=== PATIENT | male | born 1930 | race Caucasian/White ===

== ENCOUNTER 2019-06-24 12:40 | Inpatient (IN) ==
--- NOTE | 2019-06-24 13:03 | ERNOTE ---
Dizziness ER Record Date of Service: 06/24/19 Presenting Symptoms: dizziness Time Seen by Provider: 06/24/19 13:00 Source: patient Exam Limitations: no limitations Immunizations: IMMUNIZATION HX Immunizations Up to Date Yes History of Influenza Vaccine Yes Hx Pneumococcal Vaccination Yes Allergies/Adverse Reactions: Allergies Allergy/AdvReac Type Severity Reaction Status Date / Time Penicillins Allergy Other Verified 06/24/19 12:47 Home Medications: HOME MEDICATIONS Aspirin [Addis Chewable] 81 mg PO DAILY 08/13/15 [Last Taken Unknown] Finasteride [Proscar] 5 mg PO DAILY 08/13/15 [Last Taken Unknown] Levothyroxine Sodium [Synthroid] 75 mcg PO DAILY 08/13/15 [Last Taken Unknown] Tamsulosin HCl [Flomax] 0.8 mg PO DAILY 08/13/15 [Last Taken Unknown] Vit B Comp/C/FA/Iron/Vit E [Vitamin B Complex Tablet] 1 ea PO DAILY 08/13/15 [Last Taken Unknown] bisacodyl 5 mg tablet,delayed release 5 mg PO HS 03/10/18 [Last Taken Unknown] calcium carbonate 500 mg calcium (1,250 mg) chewable tablet 500 mg PO DAILY tab 03/10/18 [Last Taken Unknown] carvedilol 25 mg tablet 12.5 mg PO BID tab 03/10/18 [Last Taken Unknown] hydralazine 10 mg tablet 20 mg PO TID tab 03/10/18 [Last Taken Unknown] hydrocortisone-pramoxine 1 %-1 % rectal cream 1 applic OR TID PRN g 03/10/18 [Last Taken Unknown] krill 1,000 mg-omega-3 170 mg-dha 50 mg-epa 80 ff-lbakrl-zmgdo capsule 1 cap PO DAILY cap 03/10/18 [Last Taken Unknown] magnesium hydroxide 400 mg/5 mL oral suspension 5 ml PO HS PRN 03/10/18 [Last Taken Unknown] ysnzwava-wdu-qrhvf acid 0.4 mg-lycopene 300 mcg-lutein 250 mcg tablet 1 tab PO DAILY 03/10/18 [Last Taken Unknown] insulin syringe-needle U-100 0.3 mL 29 gauge x 08/27" See Dose Instructions .ROUTE .MEDSUPPLY #100 ea 03/12/18 [Last Taken Unknown] pen needle, diabetic 31 gauge x 01/08" See Dose Instructions .ROUTE .MEDSUPPLY #100 ea 03/19/18 [Last Taken Unknown] lisinopril 10 mg tablet 10 mg PO DAILY tab 09/19/18 [Last Taken Unknown] ranitidine HCl 300 mg tablet 300 mg PO BID 90 Days #180 tab 12/17/18 [Last Taken Unknown] insulin degludec 100 unit/mL (3 mL) subcutaneous pen 10 unit SUBCUT HS #15 ml 01/06/19 [Last Taken Unknown] furosemide 40 mg tablet 40 mg PO DAILY #90 tab 03/25/19 [Last Taken Unknown] glimepiride 4 mg tablet 4 mg PO QAM #90 tab 03/25/19 [Last Taken Unknown] blood sugar diagnostic See Dose Instructions .ROUTE .MEDSUPPLY #200 ea 04/20/19 [Last Taken Unknown] lancets See Dose Instructions .ROUTE .MEDSUPPLY #306 ea 04/20/19 [Last Taken Unknown] amlodipine 10 mg tablet 10 mg PO DAILY #90 tab 05/13/19 [Last Taken Unknown] gabapentin 300 mg capsule 300 mg PO BID #180 cap 06/02/19 [Last Taken Unknown] simvastatin 10 mg tablet 10 mg PO DAILY #90 tab 06/02/19 [Last Taken Unknown] - Pain Score Pain Score #1 Pain Score: 0 - History of Present Illness Narrative: The patient is a 88 year old male who presents for increased fatigue and intermittent dizziness which has been present since last night. There are associated symptoms of cough. The patient denies pain. There are no alleviating factors. There are aggravating factors of activity or change in position. Previous treatments have included: none. The past medical history includes: aortic stenosis, BPH, DM and HTN. The social history is positive for former smoker. The patient has had no ill contacts. Patient states he began feeling fatigue last evening and then today was having dizziness/lightheadedness with position changes and during activity. Patient states hew as so fatigued today that he was unable to get self out of bed. Review of Systems - Review of Systems Constitutional: Present: weakness, fatigue. Absent: fever EYE: Present: no symptoms reported ENT: Present: no symptoms reported. Absent: ear pain, nasal drainage, sore throat Respiratory: Present: cough. Absent: shortness of breath Cardiology: Present: no symptoms reported. Absent: chest pain Gastrointestinal/Abdominal: Present: no symptoms reported. Absent: nausea, vomiting, diarrhea, abdominal pain, eating less, drinking less Genitourinary: Present: no symptoms reported. Absent: frequency, dysuria, decreased urinary output Musculoskeletal: Present: no symptoms reported Skin: Present: no symptoms reported. Absent: rash Neurological: Present: dizziness/light-headedness. Absent: weakness All Other Systems: All systems neg except as marked Medical History (Last Reviewed 06/24/19 @ 15:01 by ADDI Wise) Hypercholesterolemia (Chronic) Essential hypertension (Chronic) Diabetes mellitus, type II (Chronic) Aortic stenosis (Chronic) moderate Benign prostate hyperplasia Myasthenia gravis without (acute) exacerbation Surgical History: Surgical History (Last Reviewed 06/24/19 @ 15:01 by ADDI Wise) H/O hernia repair History of cataract surgery History of left knee replacement Family History: Family History (Last Reviewed 06/24/19 @ 15:01 by ADDI Wise) Father , Age 76 CVA (cerebral vascular accident) Mother , Age 88 Diabetes Social History: (Last Reviewed 06/24/19 @ 15:01 by ADDI Wise) Social History: Marital status: household members: spouse current occupational status: retired Service: Yes Tobacco: Smoking Status: Former smoker Alcohol: alcohol intake: never Substance Use: substance use type: does not use Dietary Habits: caffeine: Yes Physical Exam - Physical Exam General Appearance: Present: wd/wn, alert, mild distress, other - malaised Head Exam: Present: normal inspection Eye Exam: Normal inspection: bilateral, PERRL: bilateral, EOMI: bilateral Neck: Present: normal inspection, nontender Respiratory: Present: no respiratory distress, decreased breath sounds, wheezing - expiratory wheezing Cardiovascular/Chest: Present: regular rate, rhythm, systolic murmur Gastrointestinal/Abdominal: Present: normal bowel sounds, nontender, nondistended, soft, no organomegaly Extremity Exam: Present: no edema Neurological Exam: Present: alert, oriented, normal mood/affect, no motor/sensory deficits, brim edge trimmer II-XII nml as tested, normal cerebellar test Skin Exam: Present: normal color, warm/dry Progress - Date and Time Seen: Date and Time: 06/24/19 15:15 Discussed results with patient as well as plan of care. Recommended hospital admission due to acute on chronic renal failure along with pneumonia. [facility] is [facility] and [facility] to go [facility]. Will fax chart for possible transfer. 06/24/19 15:55 Return call from [facility] and informed from Pina RIZVI that patient admission would be covered by [facility] but transport would not be covered. Admission local would not be covered by [facility] coverage. P[facility] discussed options with patient to be transferred to [facility] without transport coverage vs local admission with billing through secondary insurance, patient requests to stay local. 06/24/19 16:10 Discussed case with , will admit for inpatient for pneumonia and acute on chronic renal failure. Patient PSI score, IV. - Results and Orders Patient's Lab Results:: I have reviewed the patient's lab results. - Vital Signs Patient's Vital Signs:: I have reviewed the patient's vital signs. Vital Signs: Vital Signs 06/24/19 12:44 Temperature 36.4 C Pulse Rate 70 Respiratory Rate 16 Blood Pressure 115/53 O2 Sat by Pulse Oximetry 96 - EKG EKG #1 EKG: NSR - 1st degree AV block EKG read: Reviewed by me - X-Ray X-Ray #1 X-Ray: chest Interpretation: Reviewed by me X-ray Comments: IMPRESSION: 1. NO PRIOR STUDIES FOR COMPARISON. 2. MILD HYPERINFLATION. 3. QUESTIONABLE SUBTLE INFILTRATE IN THE INFERIOR MEDIAL RIGHT LOWER LOBE. Electronically signed by Duke Jenkins M.D.. - CT/Ultrasound CT/Ultrasound Narrative: IMPRESSION: 1. NO ACUTE INTRACRANIAL PROCESS. 2. TOTAL OPACIFICATION OF THE RIGHT MAXILLARY SINUS WITH SOME THICKENING OF THE BONE SUGGESTING CHRONIC SINUSITIS. ENT FOLLOW-UP RECOMMENDED. Electronically signed by Duke Jenkins M.D.. - Progress/Reassessment Chief Complaint: Dizziness Progress:: Improved Departure Clinical Impression: Pneumonia Qualifiers: Pneumonia type: due to unspecified organism Laterality: right Lung location: lower lobe of lung Qualified Code(s): J18.1 - Lobar pneumonia, unspecified organism Acute on chronic renal failure Qualifiers: Acute renal failure type: unspecified Chronic kidney disease stage: unspecified stage Qualified Code(s): N17.9 - Acute kidney failure, unspecified - Departure Disposition: Still a patient Condition: Stable
[2019-06-24 13:36] LABS: Hematocrit 32.3 % (42.0-52.0); Hemoglobin 10.9 gm/dL (13.5-18.0); Mean Cell Volume 95.3 fl (78-100); Mean Corpuscular Hemoglobin 32.2 pg (27-31); Mean Corpuscular Hgb Conc 33.7 g/dl (32-36); Mean Platelet Volume 11.6 fl (8-11.3); Neutrophil # 15.8 K/mm3 (1.3-6.0); Neutrophil % 87.2 % (42-75.0); Platelet Count 148 K/mm3 (150-450); Red Blood Count 3.39 M/mm3 (4.7-6.0); Red Cell Distribution Width 12.5 % (11.5-14.0); White Blood Count 18.1 K/mm3 (4.0-10.5)
[2019-06-24 13:50] LABS: ALT 36 U/L (19-67); AST 31 U/L (0-48); Albumin * 3.1 gm/dl (3.4-5.0); Alkaline Phosphatase * 88 U/L (50-170); Anion Gap 11.9 mmol/L (6.8-13.8); BUN/Creatinine Ratio 19.1 (9.0-21.6); Bilirubin, Total 0.4 mg/dL (0.0-1.1); Blood Urea Nitrogen 59 mg/dL (6-23); Ca. Corrected For Albumin 8.1 mg/dL (8.4-10.2); Calcium * 7.7 mg/dL (7.9-10.9); Carbon Dioxide 25.3 mmol/L (24-32.6); Chloride 99 mmol/L (97-106); Glucose * 251 mg/dL (70-110); Potassium 4.2 mmol/L (3.4-4.6); Sodium 132 mmol/L (132-142)
[2019-06-24 13:56] LABS: Troponin I Less than 0.017 ng/mL (0.00-0.10)
[2019-06-24] MEDS ORDERED: NORMAL SALINE 1,000 ML IV PRN (14:57)
[2019-06-24] MEDS ORDERED: cefTRIAXone SODIUM 1,000 MG/100 ML BAG IV ONE (15:17)
[2019-06-24] MEDS ORDERED: ALBUTEROL SULFATE/IPRATROPIUM 3 ML NEBU IH ONE (15:18)
[2019-06-24 15:27] LABS: Urine Appearance Clear (CLEAR); Urine Bacteria None Seen; Urine Bilirubin Negative (NEGATIVE); Urine Blood Negative /ul (NEGATIVE); Urine Color Yellow; Urine Ketone Negative (NEGATIVE); Urine Nitrite Negative (NEGATIVE); Urine Protein Negative (NEGATIVE); Urine RBC None Seen /hpf (0-5); Urine Urobilinogen Normal (NORMAL); Urine WBC None Seen /hpf (0-5); Urine pH 5.5 pH (5.0-7.0)
[2019-06-24] MEDS ORDERED: AZITHROMYCIN 250 MG TABLET PO ONE (16:01)
[2019-06-24] MEDS ORDERED: guaiFENesin 100 MG/5 ML SYRUP PO PRN (19:02)
[2019-06-24] MEDS ORDERED: MAGNESIUM HYDROXIDE 30 ML UDC PO PRN (19:06)
--- NOTE | 2019-06-24 19:31 | HP ---
Chief Complaint - Chief Complaint Date of Service: 06/24/19 Time of Service: 19:19 Chief Complaint: I had cough, weakness, and chills since this morning History of Present Illness: 88-year-old male with past medical history of type 2 diabetes, chronic kidney disease, hypertension, BPH, aortic stenosis, hypercholesterolemia, former smoker, was evaluated in our ER for worsening weakness and persistent cough as well as a headache that started this morning. Patient reports he went to bed okay last night and has not been ill in the past few days but when he woke up this morning and attempted to get out of bed he was unable to due to generalized weakness patient reports he felt ill with chills and a persistent cough. He reports receiving the influenza vaccination several weeks ago and denies any adverse reactions after the injection. Patient reports any recent travel or sick contacts. He currently lives with his who tells me that the patient had been fine over the past several days but felt ill this morning per her knowledge. Patient denies losing consciousness at any moment or falling but says he just feels weak. He reports adequate oral intake of fluids and food and denies any diarrhea that could explain fluid loss. Medical History (Last Reviewed 06/24/19 @ 15:01 by ADDI Wise) Hypercholesterolemia (Chronic) Essential hypertension (Chronic) Diabetes mellitus, type II (Chronic) Aortic stenosis (Chronic) moderate Benign prostate hyperplasia Myasthenia gravis without (acute) exacerbation Surgical History: Surgical History (Last Reviewed 06/24/19 @ 15:01 by ADDI Wise) H/O hernia repair History of cataract surgery History of left knee replacement Family History: Family History (Last Reviewed 06/24/19 @ 15:01 by ADDI Wise) Father , Age 76 CVA (cerebral vascular accident) Mother , Age 88 Diabetes Social History: (Last Reviewed 06/24/19 @ 15:01 by ADDI Wise) Social History: Marital status: household members: spouse current occupational status: retired Service: Yes Tobacco: Smoking Status: Former smoker Alcohol: alcohol intake: never Substance Use: substance use type: does not use Dietary Habits: caffeine: Yes Peds Patient Hx - Developmental: No Pertinent Hx Peds Patient Hx - Medical: No Pertinent Hx Peds Patient Hx - Cardiac/Respiratory: No Pertinent Hx Peds Patient Hx - Surgical: No Surgical History Patient History - Cancer: No Hx of Cancer Review Of Systems (GEN) - Review of Systems Generalized/Overall Review: Present: Weakness, Chills, Malaise, Fatigue EENTM: Present: No Symptoms Reported Respiratory: Present: Cough Cardiac: Present: No Symptoms Reported Abdominal: Present: No Symptoms Reported Genitourinary: Present: No Symptoms Reported Musculoskeletal: Present: No Symptoms Reported Neurological: Present: Headache Skin: Present: No Symptoms Reported Endocrine: Present: No Symptoms Reported Immunizations: IMMUNIZATION HX Immunizations Up to Date Yes History of Influenza Vaccine Yes Hx Pneumococcal Vaccination Yes Allergies/Adverse Reactions: Allergies Allergy/AdvReac Type Severity Reaction Status Date / Time Penicillins Allergy Other Verified 06/24/19 12:47 Home Medications: HOME MEDICATIONS Aspirin [Addis Chewable] 81 mg PO DAILY 08/13/15 [Last Taken Unknown] Finasteride [Proscar] 5 mg PO DAILY 08/13/15 [Last Taken Unknown] Levothyroxine Sodium [Synthroid] 75 mcg PO DAILY 08/13/15 [Last Taken Unknown] Tamsulosin HCl [Flomax] 0.8 mg PO DAILY 08/13/15 [Last Taken Unknown] Vit B Comp/C/FA/Iron/Vit E [Vitamin B Complex Tablet] 1 ea PO DAILY 08/13/15 [Last Taken Unknown] bisacodyl 5 mg tablet,delayed release 5 mg PO HS 03/10/18 [Last Taken Unknown] calcium carbonate 500 mg calcium (1,250 mg) chewable tablet 500 mg PO DAILY tab 03/10/18 [Last Taken Unknown] carvedilol 25 mg tablet 12.5 mg PO BID tab 03/10/18 [Last Taken Unknown] hydralazine 10 mg tablet 20 mg PO TID tab 03/10/18 [Last Taken Unknown] hydrocortisone-pramoxine 1 %-1 % rectal cream 1 applic OR TID PRN g 03/10/18 [Last Taken Unknown] krill 1,000 mg-omega-3 170 mg-dha 50 mg-epa 80 vs-arbmuu-fulae capsule 1 cap PO DAILY cap 03/10/18 [Last Taken Unknown] magnesium hydroxide 400 mg/5 mL oral suspension 5 ml PO HS PRN 03/10/18 [Last Taken Unknown] ofzlnlaw-vuz-lloac acid 0.4 mg-lycopene 300 mcg-lutein 250 mcg tablet 1 tab PO DAILY 03/10/18 [Last Taken Unknown] insulin syringe-needle U-100 0.3 mL 29 gauge x 1/2" See Dose Instructions .ROUTE .MEDSUPPLY #100 ea 03/12/18 [Last Taken Unknown] pen needle, diabetic 31 gauge x 01/08" See Dose Instructions .ROUTE .MEDSUPPLY #100 ea 03/19/18 [Last Taken Unknown] lisinopril 10 mg tablet 10 mg PO DAILY tab 09/19/18 [Last Taken Unknown] ranitidine HCl 300 mg tablet 300 mg PO BID 90 Days #180 tab 12/17/18 [Last Taken Unknown] insulin degludec 100 unit/mL (3 mL) subcutaneous pen 10 unit SUBCUT HS #15 ml 01/06/19 [Last Taken Unknown] furosemide 40 mg tablet 40 mg PO DAILY #90 tab 03/25/19 [Last Taken Unknown] glimepiride 4 mg tablet 4 mg PO QAM #90 tab 03/25/19 [Last Taken Unknown] blood sugar diagnostic See Dose Instructions .ROUTE .MEDSUPPLY #200 ea 04/20/19 [Last Taken Unknown] lancets See Dose Instructions .ROUTE .MEDSUPPLY #306 ea 04/20/19 [Last Taken Unknown] amlodipine 10 mg tablet 10 mg PO DAILY #90 tab 05/13/19 [Last Taken Unknown] gabapentin 300 mg capsule 300 mg PO BID #180 cap 06/02/19 [Last Taken Unknown] simvastatin 10 mg tablet 10 mg PO DAILY #90 tab 06/02/19 [Last Taken Unknown] Exam - Exam Vital Signs: Vital Signs - Last Taken Temp 36.4 C 06/24/19 12:44 Pulse 56 L 06/24/19 17:30 Resp 14 06/24/19 17:20 BP 111/37 06/24/19 17:20 Pulse Ox 94 06/24/19 17:20 Constitutional: Present: Alert, Oriented x3, Cooperative, Well developed, Well nourished, No distress, Elderly ENT Exam: Present: normal ENT inspection, hearing grossly normal, pharynx normal, TMs normal Eye Exam: bilateral eye: normal inspection, PERRL, EOMI Neck: Present: non-tender, full range of motion, supple, normal inspection, trachea midline Back Exam: Present: normal inspection, no CVA tenderness, no vertebral tenderness Breasts: Present: Exam deferred Respiratory: Present: decreased breath sounds Cardiovascular/Chest: Present: normal peripheral pulses, regular rate, rhythm, no chest tenderness, no edema, no gallop, no JVD, no murmur, no rub, systolic murmur Peripheral Pulses: carotid (R): 4+, carotid (L): 4+, femoral (R): 4+, femoral (L): 4+, dorsalis-pedis (R): 4+, dorsalis-pedis (L): 4+ Abdomen: Present: Normal bowel sounds, soft, nontender, nondistended, no rebound tenderness, no hepatospenomegaly, no masses, obese /Rectal: Present: Exam deferred Extremity: Present: normal range of motion, non-tender, normal inspection, no pedal edema, no calf tenderness, normal capillary refill, pelvis stable Skin Exam: Present: normal color, warm/dry, no cyanosis Lymphatic: Present: no adenopathy Neurologic: Present: paper bag maker II-XII nml as tested, normal cerebellar test, no motor/sensory deficits, alert, normal mood/affect, oriented x 3 Appearance: Present: appropriate appearance, appropriate insight, neat, no memory impairment Eye contact: Present: cooperative, good eye contact, normal speech Thoughts: Present: normal thought pattern, no apparent hallucination Diagnostic Studies: Abnormal Lab Results 06/24/19 06/24/19 Range/Units 13:20 13:20 WBC 18.1 H (4.0-10.5) K/mm3 RBC 3.39 L (4.7-6.0) M/mm3 Hgb 10.9 L (13.5-18.0) gm/dL Hct 32.3 L (42.0-52.0) % MCH 32.2 H (27-31) pg Plt Count 148 L (150-450) K/mm3 MPV 11.6 H (8-11.3) fl Immature Gran % (Auto) 0.90 H (0.001-0.429) % Immature Gran # (Auto) 0.16 H (0.000-0.0310) K/mm3 Neutrophils % 87.2 H (42-75.0) % Lymphocytes % 6.1 L (20-51) % Neutrophils # 15.8 H (1.3-6.0) K/mm3 Lymphocytes # 1.11 L (1.5-3.5) k/mm3 BUN 59 H (6-23) mg/dL Creatinine 3.09 H D (0.4-1.4) mg/dL Est GFR (Non-Af Amer) 20 L D (60-130) mL/min Random Glucose 251 H (70-110) mg/dL Calcium 7.7 L (7.9-10.9) mg/dL Calcium Adj for Albumin 8.1 L (8.4-10.2) mg/dL Albumin 3.1 L (3.4-5.0) gm/dl Laboratory Results WBC 18.1 K/mm3 (4.0-10.5) H 06/24/19 13:20 RBC 3.39 M/mm3 (4.7-6.0) L 06/24/19 13:20 Hgb 10.9 gm/dL (13.5-18.0) L 06/24/19 13:20 Hct 32.3 % (42.0-52.0) L 06/24/19 13:20 MCV 95.3 fl (78-100) 06/24/19 13:20 MCH 32.2 pg (27-31) H 06/24/19 13:20 MCHC 33.7 g/dl (32-36) 06/24/19 13:20 RDW 12.5 % (11.5-14.0) 06/24/19 13:20 Plt Count 148 K/mm3 (150-450) L 06/24/19 13:20 MPV 11.6 fl (8-11.3) H 06/24/19 13:20 Immature Gran % (Auto) 0.90 % (0.001-0.429) H 06/24/19 13:20 Immature Gran # (Auto) 0.16 K/mm3 (0.000-0.0310) H 06/24/19 13:20 Neutrophils % 87.2 % (42-75.0) H 06/24/19 13:20 Lymphocytes % 6.1 % (20-51) L 06/24/19 13:20 Monocytes % 5.5 % (0.0-9) 06/24/19 13:20 Eosinophils % 0.1 % (0.0-3.0) 06/24/19 13:20 Basophils % 0.2 % (0.0-1.0) 06/24/19 13:20 Nucleated RBC % 0.0 k/mm3 (0-1) 06/24/19 13:20 Neutrophils # 15.8 K/mm3 (1.3-6.0) H 06/24/19 13:20 Lymphocytes # 1.11 k/mm3 (1.5-3.5) L 06/24/19 13:20 Monocytes # 1.0 k/mm3 (0.0-1.0) 06/24/19 13:20 Eosinophils # 0.0 k/mm3 (0.0-0.7) 06/24/19 13:20 Absolute Basophils 0.0 k/mm3 (0.0-0.1) 06/24/19 13:20 Sodium 132 mmol/L (132-142) 06/24/19 13:20 Plasma Sodium 134 mmol/L (130-142) 06/24/19 13:20 Potassium 4.2 mmol/L (3.4-4.6) 06/24/19 13:20 Chloride 99 mmol/L (97-106) 06/24/19 13:20 Carbon Dioxide 25.3 mmol/L (24-32.6) 06/24/19 13:20 Anion Gap 11.9 mmol/L (6.8-13.8) 06/24/19 13:20 BUN 59 mg/dL (6-23) H 06/24/19 13:20 Creatinine 3.09 mg/dL (0.4-1.4) H D 06/24/19 13:20 Est GFR (Non-Af Amer) 20 mL/min (60-130) L D 06/24/19 13:20 BUN/Creatinine Ratio 19.1 (9.0-21.6) 06/24/19 13:20 Random Glucose 251 mg/dL (70-110) H 06/24/19 13:20 Lactic Acid, Venous 1.6 mmol/L (0.4-2.0) 06/24/19 13:20 Calcium 7.7 mg/dL (7.9-10.9) L 06/24/19 13:20 Calcium Adj for Albumin 8.1 mg/dL (8.4-10.2) L 06/24/19 13:20 Total Bilirubin 0.4 mg/dL (0.0-1.1) 06/24/19 13:20 AST 31 U/L (0-48) 06/24/19 13:20 ALT 36 U/L (19-67) 06/24/19 13:20 Alkaline Phosphatase 88 U/L (50-170) 06/24/19 13:20 Troponin I Less than 0.017 ng/mL (0.00-0.10) 06/24/19 13:20 Total Protein 7.0 gm/dL (6.2-8.2) 06/24/19 13:20 Albumin 3.1 gm/dl (3.4-5.0) L 06/24/19 13:20 Urine Color Yellow 06/24/19 15:24 Urine Appearance Clear (CLEAR) 06/24/19 15:24 Urine pH 5.5 pH (5.0-7.0) 06/24/19 15:24 Ur Specific [place] 1.010 SP.GR. (1.005-1.030) 06/24/19 15:24 Urine Protein Negative mg/dL (NEGATIVE) 06/24/19 15:24 Urine Glucose (UA) Negative mg/dL (NEGATIVE) 06/24/19 15:24 Urine Ketones Negative mg/dL (NEGATIVE) 06/24/19 15:24 Urine Blood Negative /ul (NEGATIVE) 06/24/19 15:24 Urine Nitrate Negative (NEGATIVE) 06/24/19 15:24 Urine Bilirubin Negative mg/dl (NEGATIVE) 06/24/19 15:24 Urine Urobilinogen Normal EU/dl (NORMAL) 06/24/19 15:24 Ur Leukocyte Esterase Negative /ul (NEGATIVE) 06/24/19 15:24 Urine RBC None seen /hpf (0-5) 06/24/19 15:24 Urine WBC None seen /hpf (0-5) 06/24/19 15:24 Ur Epithelial Cells None seen /hpf (0-5) 06/24/19 15:24 Urine Bacteria None seen (NONE) 06/24/19 15:24 Urine Culture Comments No culture indicated 06/24/19 15:24 Assessment/Plan - Narrative Narrative: Patient was evaluated and medical chart was reviewed and decision to admit to our inpatient MedSurg unit for treatment of a right-sided lobar pneumonia, acute on chronic renal failure and moderate dehydration was made. Labs on admission demonstrate an elevated creatinine and BUN above the patient's baseline indicating an acute renal insufficiency superimposed on his chronic kidney disease, this is likely secondary to dehydration given the patient's acute illness. We will hydrate him with IV fluids and cover him with IV antibiotics for bronchopneumonia confirmed with a chest x-ray and leukocytosis on CBC. At present the patient is resting comfortably he is surrounded by his family and is lucid awake and alert, he denies any pain and is not currently coughing and maintains stable vitals. I will order follow-up labs to be repeated in the morning to reevaluate his white count as well as renal function. All routine medications were reconciled for administration during the hospitalization. - Assessment/Plan (1) Lobar pneumonia, unspecified organism Problem: Acute (2) Mild dehydration Problem: Acute (3) Moderate dehydration Problem: Acute (4) Acute kidney injury superimposed on CKD Problem: Acute (5) Generalized weakness Problem: Acute (6) Diabetes 1.5, managed as type 2 Problem: Chronic
[2019-06-24] MEDS: NORMAL SALINE 1,000 ML IV PRN (19:34)
[2019-06-24] MEDS ORDERED: RANITIDINE HCL 300 MG PO SCH (21:00)
[2019-06-24] MEDS ORDERED: Insulin Degludec [Tresiba Flextouch U-100] SC SCH ×2 (21:00)
[2019-06-24] MEDS ORDERED: CARVEDILOL 25 MG TABLET PO SCH (21:00)
[2019-06-24] MEDS ORDERED: INSULIN GLARGINE,HUM.REC.ANLOG 100 UNITS/ML VIAL SC SCH (21:00)
[2019-06-24] MEDS ORDERED: INSULIN DEGLUDEC subcut SCH (21:00)
[2019-06-24] MEDS: BISACODYL 5 MG TABLET.DR PO SCH (21:05)
[2019-06-24] MEDS: GABAPENTIN 300 MG CAPSULE PO SCH (21:06)
[2019-06-24] MEDS: INSULIN DETEMIR 100 UNITS/ML VIAL SC SCH (21:45)
[2019-06-25] MEDS: NORMAL SALINE 1,000 ML IV PRN ×3 (03:34→19:59)
[2019-06-25 05:31] LABS: Hematocrit 26.3 % (42.0-52.0); Hemoglobin 8.7 gm/dL (13.5-18.0); Mean Cell Volume 94.6 fl (78-100); Mean Corpuscular Hemoglobin 31.3 pg (27-31); Mean Corpuscular Hgb Conc 33.1 g/dl (32-36); Mean Platelet Volume 11.5 fl (8-11.3); Neutrophil # 9.9 K/mm3 (1.3-6.0); Neutrophil % 79.2 % (42-75.0); Platelet Count 107 K/mm3 (150-450); Red Blood Count 2.78 M/mm3 (4.7-6.0); Red Cell Distribution Width 12.4 % (11.5-14.0); White Blood Count 12.5 K/mm3 (4.0-10.5)
[2019-06-25 05:48] LABS: Albumin * 2.5 gm/dl (3.4-5.0); Anion Gap 11.6 mmol/L (6.8-13.8); BUN/Creatinine Ratio 21.9 (9.0-21.6); Bilirubin, Total 0.4 mg/dL (0.0-1.1); Ca. Corrected For Albumin 8.2 mg/dL (8.4-10.2); Calcium * 7.3 mg/dL (7.9-10.9); Carbon Dioxide 23.2 mmol/L (24-32.6); Potassium 3.8 mmol/L (3.4-4.6); Total Protein 5.8 gm/dL (6.2-8.2)
[2019-06-25] MEDS ORDERED: guaiFENesin 100 MG/5 ML SYRUP PO PRN (07:38)
[2019-06-25] MEDS: GLIMEPIRIDE 4 MG TABLET PO SCH (08:39)
[2019-06-25] MEDS: ASPIRIN 81 MG TAB.CHEW PO SCH (08:48)
[2019-06-25] MEDS: VITAMIN B COMP W-C 1 TAB TABLET PO SCH (08:48)
[2019-06-25] MEDS: AZITHROMYCIN 250 MG TABLET PO SCH (08:49)
[2019-06-25] MEDS: CARVEDILOL 12.5 MG TABLET PO SCH ×2 (08:49→20:11)
[2019-06-25] MEDS: FAMOTIDINE 20 MG TABLET PO SCH (08:50)
[2019-06-25] MEDS: FINASTERIDE 5 MG TABLET PO SCH (08:50)
[2019-06-25] MEDS: MULTIVIT-MIN/FA/LYCOPEN/LUTEIN 1 TAB TABLET PO SCH (08:51)
[2019-06-25] MEDS: amLODIPine BESYLATE 10 MG TABLET PO SCH (08:51)
[2019-06-25] MEDS: CALCIUM CARBONATE/VITAMIN D3 1 TAB TABLET PO SCH (08:51)
[2019-06-25] MEDS: LISINOPRIL 10 MG TABLET PO SCH (08:51)
[2019-06-25] MEDS: LEVOTHYROXINE SODIUM 75 MCG TABLET PO SCH (08:51)
[2019-06-25] MEDS: GABAPENTIN 300 MG CAPSULE PO SCH ×2 (08:52→20:12)
[2019-06-25] MEDS: TAMSULOSIN HCL 0.4 MG CAP.SR.24H PO SCH (08:52)
[2019-06-25] MEDS: FUROSEMIDE 40 MG TABLET PO SCH (08:52)
[2019-06-25] MEDS ORDERED: NON-FORMULARY 1 DOSE DOSE (Calcium Carbonate [Calcium] 500 MG) PO SCH (09:00)
[2019-06-25] MEDS ORDERED: hydrALAZINE HCL 10 MG TABLET PO SCH (09:00)
[2019-06-25] MEDS ORDERED: FOLIC ACID PO SCH (09:00)
[2019-06-25] MEDS ORDERED: VIT B COMP PO SCH (09:00)
[2019-06-25] MEDS ORDERED: [UNRECOGNIZED DRUG - OTHER] PO SCH (09:00)
[2019-06-25] MEDS ORDERED: SIMVASTATIN 10 MG TABLET PO SCH (09:00)
[2019-06-25] MEDS ORDERED: FAMOTIDINE 20 MG TABLET PO SCH (09:00)
[2019-06-25] MEDS ORDERED: IRON PO SCH (09:00)
[2019-06-25] MEDS ORDERED: VIT E PO SCH (09:00)
[2019-06-25] MEDS ORDERED: MULTIVITAMIN PO SCH (09:00)
[2019-06-25] MEDS ORDERED: LUTEIN PO SCH (09:00)
[2019-06-25] MEDS ORDERED: LYCOPENE PO SCH (09:00)
[2019-06-25] MEDS ORDERED: [UNRECOGNIZED DRUG - OTHER] PO SCH (09:00)
--- NOTE | 2019-06-25 09:15 | PN ---
Subjective - Date and Time Seen Date: 06/25/19 Time: 09:04 Subjective Narrative: patient still complaining of weakness. White blood cell count is gone down from 18.2 to. 12.7.. Objective - Review of Systems Generalized/Overall Review: Reports: Weakness. Denies: Chills, Fever EENTM: Denies: Blurred Vision Respiratory: Reports: Cough, Shortness of Breath. Denies: Orthopnea, Wheezing Cardiac: Denies: Chest Pain, Edema, Palpitations Abdominal: Denies: Nausea, Vomiting Genitourinary Symptoms: Denies: Urgency, Frequency Musculoskeletal Complaints: Reports: Joint Pain. Denies: Back Pain Skin: Denies: Lesions, Rash Endocrine: Denies: Intolerance to Cold, Intolerance to Heat Misc: All systems neg except as marked - Vitals Vitals: Last Vital Signs Temp 37.3 C 06/25/19 07:46 Pulse 63 06/25/19 08:52 Resp 18 06/25/19 07:46 BP 122/45 06/25/19 08:52 Pulse Ox 92 L 06/25/19 07:46 - Abnormal Lab Findings Abnormal Lab Findings: Abnormal Lab Results 06/24/19 06/24/19 06/25/19 Range/Units 13:20 13:20 05:25 WBC 18.1 H 12.5 H D (4.0-10.5) K/mm3 RBC 3.39 L 2.78 L (4.7-6.0) M/mm3 Hgb 10.9 L 8.7 L (13.5-18.0) gm/dL Hct 32.3 L 26.3 L (42.0-52.0) % MCH 32.2 H 31.3 H (27-31) pg Plt Count 148 L 107 L (150-450) K/mm3 MPV 11.6 H 11.5 H (8-11.3) fl Immature Gran % (Auto) 0.90 H (0.001-0.429) % Immature Gran # (Auto) 0.16 H 0.05 H (0.000-0.0310) K/mm3 Neutrophils % 87.2 H 79.2 H (42-75.0) % Lymphocytes % 6.1 L 11.8 L (20-51) % Neutrophils # 15.8 H 9.9 H (1.3-6.0) K/mm3 Lymphocytes # 1.11 L 1.48 L (1.5-3.5) k/mm3 Carbon Dioxide (24-32.6) mmol/L BUN 59 H (6-23) mg/dL Creatinine 3.09 H D (0.4-1.4) mg/dL Est GFR (Non-Af Amer) 20 L D (60-130) mL/min BUN/Creatinine Ratio (9.0-21.6) Random Glucose 251 H (70-110) mg/dL Calcium 7.7 L (7.9-10.9) mg/dL Calcium Adj for Albumin 8.1 L (8.4-10.2) mg/dL Total Protein (6.2-8.2) gm/dL Albumin 3.1 L (3.4-5.0) gm/dl 06/25/19 06/25/19 Range/Units 05:25 07:32 WBC (4.0-10.5) K/mm3 RBC (4.7-6.0) M/mm3 Hgb (13.5-18.0) gm/dL Hct (42.0-52.0) % MCH (27-31) pg Plt Count (150-450) K/mm3 MPV (8-11.3) fl Immature Gran % (Auto) (0.001-0.429) % Immature Gran # (Auto) (0.000-0.0310) K/mm3 Neutrophils % (42-75.0) % Lymphocytes % (20-51) % Neutrophils # (1.3-6.0) K/mm3 Lymphocytes # (1.5-3.5) k/mm3 Carbon Dioxide 23.2 L (24-32.6) mmol/L BUN 53 H (6-23) mg/dL Creatinine 2.42 H D (0.4-1.4) mg/dL Est GFR (Non-Af Amer) 27 L D (60-130) mL/min BUN/Creatinine Ratio 21.9 H (9.0-21.6) Random Glucose 61 L D 48 L (70-110) mg/dL Calcium 7.3 L (7.9-10.9) mg/dL Calcium Adj for Albumin 8.2 L (8.4-10.2) mg/dL Total Protein 5.8 L (6.2-8.2) gm/dL Albumin 2.5 L (3.4-5.0) gm/dl - Exam Constitutional: Present: Alert, Oriented x3, Cooperative, Elderly ENT Exam: Present: hearing grossly normal Neck: Present: supple. Absent: lymphadenopathy (R), lymphadenopathy (L) Respiratory: Present: decreased breath sounds, No rales, No wheezing Cardiovascular/Chest: Present: regular rate, rhythm, no JVD, no murmur Abdomen: Present: Normal bowel sounds, soft, nontender, nondistended Extremity: Present: no pedal edema, no calf tenderness Assessment/Plan Plan Narrative: Tonny Monteiro is an 88-year-old white male who was admitted yesterday for weakness and was found to have an acute kidney failure on chronic renal failure, right lower lobe pneumonia. His kidney failure likely is due to dehydration and his pneumonia is likely either community-acquired versus possible aspiration pneumonia. Since his white blood cell count is improving with ceftriaxone and azithromycin we will continue with it for now and will defer from adding anaerobic coverage for now. We will continue with IV fluid. His creatinine has improved from 3.09 to 2.47 but with his present GFR is in chronic renal failure stage IV. Hopefully his creatinine will continue to improve and he will be able to go back to stage III. He was on chronic renal failure stage III prior to this acute event. We will monitor his hemoglobin at his went down to 8.7. - Problems/Diagnosis (1) Generalized weakness Problem: Acute (2) Pneumonia Problem: Acute Qualifiers: Pneumonia type: due to unspecified organism Laterality: right Lung location: lower lobe of lung Qualified Code(s): J18.1 - Lobar pneumonia, unspecified organism (3) Acute on chronic renal failure Problem: Acute Qualifiers: Acute renal failure type: unspecified Chronic kidney disease stage: unspecified stage Qualified Code(s): N17.9 - Acute kidney failure, unspecified; N18.9 - Chronic kidney disease, unspecified (4) Aortic stenosis Problem: Chronic Qualifiers: Cardiac valve disease etiology: nonrheumatic Qualified Code(s): I35.0 - Nonrheumatic aortic (valve) stenosis (5) Diabetes mellitus, type II Problem: Chronic Qualifiers: Diabetes mellitus mcfp insulin use: without terminal superintendent use Diabetes mellitus complication status: with kidney complications Diabetes mellitus complication detail: with chronic kidney disease Chronic kidney disease stage: stage 3 (moderate) Qualified Code(s): E11.22 - Type 2 diabetes mellitus with diabetic chronic kidney disease; N18.3 - Chronic kidney disease, stage 3 (moderate) (6) Essential hypertension Problem: Chronic (7) Hypercholesterolemia Problem: Chronic (8) CRF (chronic renal failure) Problem: Chronic Qualifiers: Chronic kidney disease stage: stage 3 (moderate) Qualified Code(s): N18.3 - Chronic kidney disease, stage 3 (moderate)
[2019-06-25] MEDS: ACETAMINOPHEN 500 MG TABLET PO PRN (18:40)
[2019-06-25] MEDS: BISACODYL 5 MG TABLET.DR PO SCH (20:01)
[2019-06-25] MEDS: SIMVASTATIN 10 MG TABLET PO SCH (20:13)
[2019-06-25] MEDS: INSULIN DETEMIR 100 UNITS/ML VIAL SC SCH (20:13)
[2019-06-26] MEDS: NORMAL SALINE 1,000 ML IV PRN (03:56)
[2019-06-26] MEDS: GLIMEPIRIDE 4 MG TABLET PO SCH (06:58)
[2019-06-26] MEDS: LEVOTHYROXINE SODIUM 75 MCG TABLET PO SCH (06:58)
[2019-06-26 07:05] LABS: Hematocrit 29.2 % (42.0-52.0); Hemoglobin 9.4 gm/dL (13.5-18.0); Mean Corpuscular Hemoglobin 31.2 pg (27-31); Mean Corpuscular Hgb Conc 32.2 g/dl (32-36); Mean Platelet Volume 11.8 fl (8-11.3); Neutrophil # 7.1 K/mm3 (1.3-6.0); Neutrophil % 73.9 % (42-75.0); Platelet Count 113 K/mm3 (150-450); Red Blood Count 3.01 M/mm3 (4.7-6.0); Red Cell Distribution Width 12.6 % (11.5-14.0); White Blood Count 9.7 K/mm3 (4.0-10.5)
[2019-06-26 07:16] LABS: Anion Gap 11.4 mmol/L (6.8-13.8); Calcium * 7.6 mg/dL (7.9-10.9); Carbon Dioxide 23.5 mmol/L (24-32.6); Estimated Creat Clear 23.3; Potassium 3.9 mmol/L (3.4-4.6)
[2019-06-26 07:38] LABS: Hemoglobin A1C 6.6 % (4.00-6.0)
[2019-06-26] MEDS: VITAMIN B COMP W-C 1 TAB TABLET PO SCH (08:24)
[2019-06-26] MEDS: CALCIUM CARBONATE/VITAMIN D3 1 TAB TABLET PO SCH (08:24)
[2019-06-26] MEDS: MULTIVIT-MIN/FA/LYCOPEN/LUTEIN 1 TAB TABLET PO SCH (08:24)
[2019-06-26] MEDS: ASPIRIN 81 MG TAB.CHEW PO SCH (08:24)
[2019-06-26] MEDS: CARVEDILOL 12.5 MG TABLET PO SCH ×2 (08:24→20:27)
[2019-06-26] MEDS: TAMSULOSIN HCL 0.4 MG CAP.SR.24H PO SCH (08:25)
[2019-06-26] MEDS: FUROSEMIDE 40 MG TABLET PO SCH (08:25)
[2019-06-26] MEDS: FAMOTIDINE 20 MG TABLET PO SCH (08:25)
[2019-06-26] MEDS: amLODIPine BESYLATE 10 MG TABLET PO SCH (08:25)
[2019-06-26] MEDS: GABAPENTIN 300 MG CAPSULE PO SCH ×2 (08:25→20:28)
[2019-06-26] MEDS: LISINOPRIL 10 MG TABLET PO SCH (08:25)
[2019-06-26] MEDS: FINASTERIDE 5 MG TABLET PO SCH (08:25)
[2019-06-26] MEDS: AZITHROMYCIN 250 MG TABLET PO SCH (08:26)
[2019-06-26] MEDS: metroNIDAZOLE 500 MG TABLET PO SCH ×2 (11:03→18:40)
--- NOTE | 2019-06-26 12:38 | PN ---
Subjective - Date and Time Seen Date: 06/26/19 Time: 12:29 Subjective Narrative: was complaining of abdominal pain. 2 x diarrhea. WBC back to normal. Objective - Review of Systems Generalized/Overall Review: Reports: Weakness. Denies: Chills, Fever EENTM: Denies: Blurred Vision Respiratory: Reports: Cough. Denies: Shortness of Breath Cardiac: Denies: Chest Pain, Edema, Palpitations Abdominal: Reports: Abdominal Pain, Diarrhea. Denies: Nausea, Vomiting Genitourinary Symptoms: Denies: Urgency, Frequency Musculoskeletal Complaints: Reports: Joint Pain Neurological: Denies: Headache Skin: Denies: Lesions, Rash Endocrine: Denies: Intolerance to Cold, Intolerance to Heat Misc: All systems neg except as marked - Vitals Vitals: Last Vital Signs Temp 36.8 C 06/26/19 10:11 Pulse 55 L 06/26/19 11:14 Resp 18 06/26/19 10:11 BP 135/54 06/26/19 10:11 Pulse Ox 92 L 06/26/19 10:11 - Abnormal Lab Findings Abnormal Lab Findings: Abnormal Lab Results 06/26/19 06/26/19 06/26/19 Range/Units 06:57 06:57 06:57 RBC 3.01 L (4.7-6.0) M/mm3 Hgb 9.4 L (13.5-18.0) gm/dL Hct 29.2 L (42.0-52.0) % MCH 31.2 H (27-31) pg Plt Count 113 L (150-450) K/mm3 MPV 11.8 H (8-11.3) fl Lymphocytes % 12.1 L (20-51) % Eosinophils % 6.7 H (0.0-3.0) % Neutrophils # 7.1 H (1.3-6.0) K/mm3 Lymphocytes # 1.17 L (1.5-3.5) k/mm3 Chloride 111 H (97-106) mmol/L Carbon Dioxide 23.5 L (24-32.6) mmol/L BUN 36 H (6-23) mg/dL Creatinine 1.80 H D (0.4-1.4) mg/dL Est GFR (Non-Af Amer) 38 L D (60-130) mL/min Random Glucose 125 H D (70-110) mg/dL Hemoglobin A1c 6.6 H (4.00-6.0) % Calcium 7.6 L (7.9-10.9) mg/dL - Exam Constitutional: Present: Alert, Oriented x3, Cooperative, Elderly ENT Exam: Present: hearing grossly normal Neck: Present: supple. Absent: lymphadenopathy (R), lymphadenopathy (L) Respiratory: Present: decreased breath sounds, No rales, No wheezing Cardiovascular/Chest: Present: regular rate, rhythm, no JVD, no murmur Abdomen: Present: Normal bowel sounds, soft, tender - slight, diffuse, distended Extremity: Present: no pedal edema, no calf tenderness Assessment/Plan Plan Narrative: Tonny Monteiro was admitted for pneumonia and generalized weakness. His white blood cell count has gone back to normal however this morning he was complaining of abdominal pain and said that he has had 2 diarrheic episodes. We got an abdominal x-ray which showed abnormal gas bowel pattern with no obstruction likely due to colitis. I started him on Flagyl and get stool for culture and sensitivity and C. difficile. We will defer from discharging him today. He has gotten a total of 5250 mL of IV fluid since admission and will discontinue it for today but if he continues to have diarrhea we will likely have to restart it again. His creatinine is significantly improved from 3.09 to 1.8 which is his baseline of chronic renal failure stage III. - Problems/Diagnosis (1) Abdominal pain Problem: Acute (2) Generalized weakness Problem: Acute (3) Pneumonia Problem: Acute Qualifiers: Pneumonia type: due to unspecified organism Laterality: right Lung location: lower lobe of lung Qualified Code(s): J18.1 - Lobar pneumonia, unspecified organism (4) Acute on chronic renal failure Problem: Acute Qualifiers: Acute renal failure type: unspecified Chronic kidney disease stage: unspecified stage Qualified Code(s): N17.9 - Acute kidney failure, unspecified; N18.9 - Chronic kidney disease, unspecified (5) Aortic stenosis Problem: Chronic Qualifiers: Cardiac valve disease etiology: nonrheumatic Qualified Code(s): I35.0 - Nonrheumatic aortic (valve) stenosis (6) Diabetes mellitus, type II Problem: Chronic Qualifiers: Diabetes mellitus tank terminal gauger insulin use: without correction use Diabetes mellitus complication status: with kidney complications Diabetes mellitus complication detail: with chronic kidney disease Chronic kidney disease stage: stage 3 (moderate) Qualified Code(s): E11.22 - Type 2 diabetes mellitus with diabetic chronic kidney disease; N18.3 - Chronic kidney disease, stage 3 (moderate) (7) Essential hypertension Problem: Chronic (8) Hypercholesterolemia Problem: Chronic (9) CRF (chronic renal failure) Problem: Chronic Qualifiers: Chronic kidney disease stage: stage 3 (moderate) Qualified Code(s): N18.3 - Chronic kidney disease, stage 3 (moderate)
[2019-06-26] MEDS: INSULIN DETEMIR 100 UNITS/ML VIAL SC SCH (20:25)
[2019-06-26] MEDS: BISACODYL 5 MG TABLET.DR PO SCH (20:28)
[2019-06-26] MEDS: SIMVASTATIN 10 MG TABLET PO SCH (20:29)
[2019-06-27] MEDS: metroNIDAZOLE 500 MG TABLET PO SCH ×3 (01:54→18:09)
[2019-06-27 06:18] LABS: Hematocrit 27.7 % (42.0-52.0); Hemoglobin 9.2 gm/dL (13.5-18.0); Mean Cell Volume 95.5 fl (78-100); Mean Corpuscular Hemoglobin 31.7 pg (27-31); Mean Corpuscular Hgb Conc 33.2 g/dl (32-36); Mean Platelet Volume 11.6 fl (8-11.3); Neutrophil # 7.5 K/mm3 (1.3-6.0); Neutrophil % 71.4 % (42-75.0); Platelet Count 116 K/mm3 (150-450); Red Cell Distribution Width 12.5 % (11.5-14.0); White Blood Count 10.5 K/mm3 (4.0-10.5)
[2019-06-27 06:24] LABS: Anion Gap 13.1 mmol/L (6.8-13.8); Calcium * 7.6 mg/dL (7.9-10.9); Estimated Creat Clear 25.1; Potassium 4.1 mmol/L (3.4-4.6)
[2019-06-27] MEDS: CALCIUM CARBONATE/VITAMIN D3 1 TAB TABLET PO SCH (08:17)
[2019-06-27] MEDS: ASPIRIN 81 MG TAB.CHEW PO SCH (08:17)
[2019-06-27] MEDS: GLIMEPIRIDE 4 MG TABLET PO SCH (08:17)
[2019-06-27] MEDS: MULTIVIT-MIN/FA/LYCOPEN/LUTEIN 1 TAB TABLET PO SCH (08:17)
[2019-06-27] MEDS: LEVOTHYROXINE SODIUM 75 MCG TABLET PO SCH (08:17)
[2019-06-27] MEDS: amLODIPine BESYLATE 10 MG TABLET PO SCH (08:18)
[2019-06-27] MEDS: AZITHROMYCIN 250 MG TABLET PO SCH (08:18)
[2019-06-27] MEDS: CARVEDILOL 12.5 MG TABLET PO SCH ×2 (08:18→20:08)
[2019-06-27] MEDS: LISINOPRIL 10 MG TABLET PO SCH (08:18)
[2019-06-27] MEDS: TAMSULOSIN HCL 0.4 MG CAP.SR.24H PO SCH (08:19)
[2019-06-27] MEDS: GABAPENTIN 300 MG CAPSULE PO SCH ×2 (08:19→20:09)
[2019-06-27] MEDS: FUROSEMIDE 40 MG TABLET PO SCH (08:19)
[2019-06-27] MEDS: FAMOTIDINE 20 MG TABLET PO SCH (08:19)
[2019-06-27] MEDS: FINASTERIDE 5 MG TABLET PO SCH (08:19)
[2019-06-27] MEDS: VITAMIN B COMP W-C 1 TAB TABLET PO SCH (08:19)
--- NOTE | 2019-06-27 10:37 | PN ---
Subjective - Date and Time Seen Date: 06/27/19 Time: 08:40 Subjective Narrative: Mr. Monteiro feels like he is doing better today. He is breathing easier and not in any respiratory distress on room air. However he has had diarrhea last night and again has had diarrhea once this morning. His vital signs have been stable and he is afebrile. He still has some passive liver congestion and a mild amount of edema in the lower extremities and the HJR is weakly positive. His left lung is clear but there are some scattered rales posteriorly in the right base. He has diuresed well since he has been here and clinically is significantly improved. His hemoglobin is at 9.2 g this morning and his EGFR has improved to 41. The fasting blood sugar this morning is 76. He is on 4 mg of glimepiride so I will reduce that to 2 mg/day. No other significant lab changes. Objective - Review of Systems Generalized/Overall Review: Reports: Weakness EENTM: Reports: No Symptoms Reported Respiratory: Reports: Cough, Shortness of Breath - With exertion Cardiac: Reports: No Symptoms Reported Abdominal: Reports: Diarrhea Genitourinary Symptoms: Reports: No Symptoms Reported Musculoskeletal Complaints: Reports: No Symptoms Reported Neurological: Reports: No Symptoms Reported Skin: Reports: No Symptoms Reported Endocrine: Reports: No Symptoms Reported - Vitals Vitals: Last Vital Signs Temp 37.4 C 06/27/19 06:29 Pulse 61 06/27/19 08:19 Resp 20 06/27/19 06:29 BP 142/52 06/27/19 08:19 Pulse Ox 93 06/27/19 06:29 - Abnormal Lab Findings Abnormal Lab Findings: Abnormal Lab Results 06/27/19 06/27/19 Range/Units 05:50 05:50 RBC 2.90 L (4.7-6.0) M/mm3 Hgb 9.2 L (13.5-18.0) gm/dL Hct 27.7 L (42.0-52.0) % MCH 31.7 H (27-31) pg Plt Count 116 L (150-450) K/mm3 MPV 11.6 H (8-11.3) fl Immature Gran % (Auto) 0.60 H (0.001-0.429) % Immature Gran # (Auto) 0.06 H (0.000-0.0310) K/mm3 Lymphocytes % 13.4 L (20-51) % Eosinophils % 5.8 H (0.0-3.0) % Neutrophils # 7.5 H (1.3-6.0) K/mm3 Lymphocytes # 1.40 L (1.5-3.5) k/mm3 Chloride 107 H (97-106) mmol/L BUN 30 H (6-23) mg/dL Creatinine 1.67 H (0.4-1.4) mg/dL Est GFR (Non-Af Amer) 41 L (60-130) mL/min Calcium 7.6 L (7.9-10.9) mg/dL - Exam Constitutional: Present: Alert, Oriented x3, Cooperative, Well developed, Well nourished, No distress, Elderly ENT Exam: Present: normal ENT inspection, hearing grossly normal, pharynx normal Neck: Present: non-tender, full range of motion Breasts: Present: Nontender Respiratory: Present: chest non-tender, rales - Right posterior base Cardiovascular/Chest: Present: normal peripheral pulses, regular rate, rhythm, no chest tenderness, edema Abdomen: Present: Normal bowel sounds, soft, nontender, nondistended, no rebound tenderness, no hepatospenomegaly, no masses /Rectal: Present: Exam deferred Extremity: Present: normal range of motion, non-tender, normal inspection, lower extremity edema Skin Exam: Present: normal color, warm/dry, no cyanosis Lymphatic: Present: no adenopathy 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 Decrease glimepiride to 2 mg daily and monitor blood sugars closely 2. CBC CMP and chest x-ray tomorrow morning 3. Stop bisocodyl due to diarrhea 4. Progress activity as tolerated - Problems/Diagnosis (1) Diarrhea Problem: Acute (2) Pneumonia Problem: Acute Qualifiers: Pneumonia type: due to unspecified organism Laterality: right Lung location: lower lobe of lung Qualified Code(s): J18.1 - Lobar pneumonia, unspecified organism (3) Acute on chronic renal failure Problem: Acute Qualifiers: Acute renal failure type: unspecified Chronic kidney disease stage: unspecified stage Qualified Code(s): N17.9 - Acute kidney failure, unspecified; N18.9 - Chronic kidney disease, unspecified (4) Diabetes type 2, controlled Problem: Chronic Qualifiers: Diabetes mellitus chcf insulin use: with salvage determiner use Diabetes mellitus complication status: with kidney complications Diabetes mellitus complication detail: with chronic kidney disease Chronic kidney disease stage: stage 3 (moderate) Qualified Code(s): E11.22 - Type 2 diabetes mellitus with diabetic chronic kidney disease; N18.3 - Chronic kidney disease, stage 3 (moderate); Z79.4 - buttermilk drier operator (current) use of insulin
[2019-06-27] MEDS: ACETAMINOPHEN 500 MG TABLET PO PRN (18:25)
[2019-06-27] MEDS: SIMVASTATIN 10 MG TABLET PO SCH (20:10)
[2019-06-27] MEDS: INSULIN DETEMIR 100 UNITS/ML VIAL SC SCH (20:11)
[2019-06-28] MEDS: metroNIDAZOLE 500 MG TABLET PO SCH ×3 (02:25→18:43)
[2019-06-28] MEDS: ASPIRIN 81 MG TAB.CHEW PO SCH (09:54)
[2019-06-28] MEDS: CALCIUM CARBONATE/VITAMIN D3 1 TAB TABLET PO SCH (09:54)
[2019-06-28] MEDS: LEVOTHYROXINE SODIUM 75 MCG TABLET PO SCH (09:54)
[2019-06-28] MEDS: MULTIVIT-MIN/FA/LYCOPEN/LUTEIN 1 TAB TABLET PO SCH (09:54)
[2019-06-28] MEDS: GABAPENTIN 300 MG CAPSULE PO SCH ×2 (09:55→20:33)
[2019-06-28] MEDS: amLODIPine BESYLATE 10 MG TABLET PO SCH (09:55)
[2019-06-28] MEDS: TAMSULOSIN HCL 0.4 MG CAP.SR.24H PO SCH (09:55)
[2019-06-28] MEDS: CARVEDILOL 12.5 MG TABLET PO SCH ×2 (09:55→20:37)
[2019-06-28] MEDS: FUROSEMIDE 40 MG TABLET PO SCH (09:55)
[2019-06-28] MEDS: VITAMIN B COMP W-C 1 TAB TABLET PO SCH (09:56)
[2019-06-28] MEDS: FINASTERIDE 5 MG TABLET PO SCH (09:56)
[2019-06-28] MEDS: AZITHROMYCIN 250 MG TABLET PO SCH (09:56)
[2019-06-28] MEDS: LISINOPRIL 10 MG TABLET PO SCH (09:56)
[2019-06-28] MEDS: FAMOTIDINE 20 MG TABLET PO SCH (09:57)
[2019-06-28 10:36] LABS: Albumin * 2.4 gm/dl (3.4-5.0); Anion Gap 9.6 mmol/L (6.8-13.8); BUN/Creatinine Ratio 19.5 (9.0-21.6); Bilirubin, Total 0.3 mg/dL (0.0-1.1); Ca. Corrected For Albumin 9.2 mg/dL (8.4-10.2); Calcium * 8.2 mg/dL (7.9-10.9); Carbon Dioxide 26.3 mmol/L (24-32.6); Potassium 3.9 mmol/L (3.4-4.6); Total Protein 6.4 gm/dL (6.2-8.2)
[2019-06-28] MEDS: GLIMEPIRIDE 2 MG TABLET PO SCH (10:54)
[2019-06-28] MEDS: ACETAMINOPHEN 500 MG TABLET PO PRN (10:59)
[2019-06-28 11:31] LABS: Hematocrit 28.7 % (42.0-52.0); Hemoglobin 9.4 gm/dL (13.5-18.0); Mean Cell Volume 94.4 fl (78-100); Mean Corpuscular Hemoglobin 30.9 pg (27-31); Mean Corpuscular Hgb Conc 32.8 g/dl (32-36); Mean Platelet Volume 11.5 fl (8-11.3); Neutrophil # 6.6 K/mm3 (1.3-6.0); Neutrophil % 68.5 % (42-75.0); Platelet Count 128 K/mm3 (150-450); Red Blood Count 3.04 M/mm3 (4.7-6.0); Red Cell Distribution Width 12.3 % (11.5-14.0); White Blood Count 9.6 K/mm3 (4.0-10.5)
--- NOTE | 2019-06-28 13:30 | PN ---
Subjective - Date and Time Seen Date: 06/28/19 Time: 10:20 Subjective Narrative: Mr. Monteiro continues to improve. He is feeling better this morning. He continues to have some coughing. He has not had fever or chills. Vital signs have been normal. Laboratory work this morning shows hemoglobin is slightly improved to 9.2 g up 0.2 from yesterday, platelets are 128,000 up slightly from yesterday. The EGFR is a same at 41 creatinine is 1.69 essentially unchanged from yesterday. He seems to be improving with current therapy. Dr. Perera will assume his care tomorrow morning. Objective - Review of Systems Generalized/Overall Review: Reports: Weakness EENTM: Reports: No Symptoms Reported Respiratory: Reports: Cough, Shortness of Breath Cardiac: Reports: No Symptoms Reported Abdominal: Reports: No Symptoms Reported Genitourinary Symptoms: Reports: No Symptoms Reported Musculoskeletal Complaints: Reports: No Symptoms Reported Neurological: Reports: No Symptoms Reported Skin: Reports: No Symptoms Reported Endocrine: Reports: No Symptoms Reported - Vitals Vitals: Last Vital Signs Temp 37.7 C 06/28/19 09:00 Pulse 57 L 06/28/19 09:55 Resp 20 06/28/19 09:00 BP 117/72 06/28/19 09:55 Pulse Ox 96 06/28/19 09:00 - Abnormal Lab Findings Abnormal Lab Findings: Abnormal Lab Results 06/28/19 06/28/19 Range/Units 06:00 06:00 RBC 3.04 L (4.7-6.0) M/mm3 Hgb 9.4 L (13.5-18.0) gm/dL Hct 28.7 L (42.0-52.0) % Plt Count 128 L (150-450) K/mm3 MPV 11.5 H (8-11.3) fl Immature Gran % (Auto) 0.50 H (0.001-0.429) % Immature Gran # (Auto) 0.05 H (0.000-0.0310) K/mm3 Lymphocytes % 12.3 L (20-51) % Monocytes % 9.7 H (0.0-9) % Eosinophils % 8.6 H (0.0-3.0) % Neutrophils # 6.6 H (1.3-6.0) K/mm3 Lymphocytes # 1.18 L (1.5-3.5) k/mm3 Eosinophils # 0.8 H (0.0-0.7) k/mm3 BUN 33 H (6-23) mg/dL Creatinine 1.69 H (0.4-1.4) mg/dL Est GFR (Non-Af Amer) 41 L (60-130) mL/min Random Glucose 53 L (70-110) mg/dL Albumin 2.4 L (3.4-5.0) gm/dl - Exam Constitutional: Present: Alert, Oriented x3, Cooperative, Well developed, Well nourished, No distress ENT Exam: Present: normal ENT inspection, hearing grossly normal, pharynx normal Neck: Present: non-tender, full range of motion, supple Respiratory: Present: chest non-tender, lungs clear, normal breath sounds Cardiovascular/Chest: Present: normal peripheral pulses, regular rate, rhythm, no chest tenderness Abdomen: Present: Normal bowel sounds, soft, nontender, nondistended, no rebound tenderness, no hepatospenomegaly, no masses /Rectal: Present: Exam deferred Extremity: Present: normal range of motion, non-tender, normal inspection, no pedal edema Skin Exam: Present: normal color, warm/dry, no cyanosis Lymphatic: Present: no adenopathy 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 Continue current therapy. 2. Recheck lab in the morning. 3. Dr. Perera will assume care tomorrow morning - Problems/Diagnosis (1) Diarrhea Problem: Acute (2) Pneumonia Problem: Acute Qualifiers: Pneumonia type: due to unspecified organism Laterality: right Lung location: lower lobe of lung Qualified Code(s): J18.1 - Lobar pneumonia, unspecified organism (3) Acute on chronic renal failure Problem: Acute Qualifiers: Acute renal failure type: unspecified Chronic kidney disease stage: unspecified stage Qualified Code(s): N17.9 - Acute kidney failure, unspecified; N18.9 - Chronic kidney disease, unspecified (4) Diabetes type 2, controlled Problem: Chronic Qualifiers: Diabetes mellitus director long term care insulin use: with fpc use Diabetes mellitus complication status: with kidney complications Diabetes mellitus complication detail: with chronic kidney disease Chronic kidney disease stage: stage 3 (moderate) Qualified Code(s): E11.22 - Type 2 diabetes mellitus with diabetic chronic kidney disease; N18.3 - Chronic kidney disease, stage 3 (moderate); Z79.4 - custodial (current) use of insulin
[2019-06-28] MEDS ORDERED: BISACODYL 5 MG TABLET.DR PO PRN (19:00)
[2019-06-28] MEDS: SIMVASTATIN 10 MG TABLET PO SCH (20:42)
[2019-06-28] MEDS ORDERED: INSULIN DETEMIR 100 UNITS/ML VIAL SC SCH (21:00)
[2019-06-29] MEDS: metroNIDAZOLE 500 MG TABLET PO SCH ×3 (02:46→09:32)
[2019-06-29 05:47] LABS: Hematocrit 27.5 % (42.0-52.0); Hemoglobin 9.1 gm/dL (13.5-18.0); Mean Cell Volume 96.5 fl (78-100); Mean Corpuscular Hemoglobin 31.9 pg (27-31); Mean Corpuscular Hgb Conc 33.1 g/dl (32-36); Mean Platelet Volume 11.3 fl (8-11.3); Neutrophil # 5.3 K/mm3 (1.3-6.0); Neutrophil % 64.6 % (42-75.0); Platelet Count 137 K/mm3 (150-450); Red Blood Count 2.85 M/mm3 (4.7-6.0); Red Cell Distribution Width 12.5 % (11.5-14.0); White Blood Count 8.1 K/mm3 (4.0-10.5)
[2019-06-29 06:13] LABS: Albumin * 2.2 gm/dl (3.4-5.0); Anion Gap 9.6 mmol/L (6.8-13.8); BUN/Creatinine Ratio 20.5 (9.0-21.6); Bilirubin, Total 0.3 mg/dL (0.0-1.1); Ca. Corrected For Albumin 8.9 mg/dL (8.4-10.2); Calcium * 7.8 mg/dL (7.9-10.9); Carbon Dioxide 24.5 mmol/L (24-32.6); Potassium 4.1 mmol/L (3.4-4.6); Total Protein 6.3 gm/dL (6.2-8.2)
[2019-06-29] MEDS: LEVOTHYROXINE SODIUM 75 MCG TABLET PO SCH (07:33)
[2019-06-29] MEDS: CALCIUM CARBONATE/VITAMIN D3 1 TAB TABLET PO SCH (08:35)
[2019-06-29] MEDS: GLIMEPIRIDE 2 MG TABLET PO SCH ×2 (08:35→08:44)
[2019-06-29] MEDS: FINASTERIDE 5 MG TABLET PO SCH (08:35)
[2019-06-29] MEDS: MULTIVIT-MIN/FA/LYCOPEN/LUTEIN 1 TAB TABLET PO SCH (08:35)
[2019-06-29] MEDS: FAMOTIDINE 20 MG TABLET PO SCH (08:36)
[2019-06-29] MEDS: amLODIPine BESYLATE 10 MG TABLET PO SCH (08:36)
[2019-06-29] MEDS: GABAPENTIN 300 MG CAPSULE PO SCH (08:37)
[2019-06-29] MEDS: LISINOPRIL 10 MG TABLET PO SCH (08:37)
[2019-06-29] MEDS: FUROSEMIDE 40 MG TABLET PO SCH (08:37)
[2019-06-29] MEDS: VITAMIN B COMP W-C 1 TAB TABLET PO SCH (08:37)
[2019-06-29] MEDS: ASPIRIN 81 MG TAB.CHEW PO SCH (08:37)
[2019-06-29] MEDS: CARVEDILOL 12.5 MG TABLET PO SCH (08:39)
[2019-06-29] MEDS ORDERED: TAMSULOSIN HCL 0.4 MG CAP.SR.24H PO SCH ×2 (09:00→18:00)
[2019-06-29] MEDS ORDERED: GLIMEPIRIDE 4 MG TABLET PO SCH (09:00)
--- NOTE | 2019-06-29 09:43 | PN ---
Progess Note - Interim Date: 06/29/19 Time: 09:42 Narrative: 06/29/19 09:42 No longer having diarrhea and abdominal pain. Abdomen still slightly distended. will get a follow AXR. possible discharge today on oral antibiotics.
--- NOTE | 2019-06-29 11:52 | DS ---
(1) Abdominal pain Problem: Resolved (2) Generalized weakness Problem: Resolved (3) Pneumonia Problem: Acute Qualifiers: Pneumonia type: due to unspecified organism Laterality: right Lung loc ation: lower lobe of lung Qualified Code(s): J18.1 - Lobar pneumonia, unspecified organism (4) Acute on chronic renal failure Problem: Acute Qualifiers: Acute renal failure type: unspecified Chronic kidney disease stage: unspecified stage Qualified Code(s): N17.9 - Acute kidney failure, unspecified; N18.9 - Chronic kidney disease, unspecified (5) Aortic stenosis Problem: Chronic Qualifiers: Cardiac valve disease etiology: nonrheumatic Qualified Code(s): I35.0 - Nonrheumatic aortic (valve) stenosis (6) Diabetes mellitus, type II Problem: Chronic Qualifiers: Diabetes mellitus termite treater insulin use: without termite treater use Diabetes mellitus complication status: with kidney complications Diabetes mellitus complication detail: with chronic kidney disease Chronic kidney disease stage: stage 3 (moderate) Qualified Code(s): E11.22 - Type 2 diabetes mellitus with diabetic chronic kidney disease; N18.3 - Chronic kidney disease, stage 3 (moderate) (7) Essential hypertension Problem: Chronic (8) Hypercholesterolemia Problem: Chronic (9) CRF (chronic renal failure) Problem: Chronic Qualifiers: Chronic kidney disease stage: stage 3 (moderate) Qualified Code(s): N18.3 - Chronic kidney disease, stage 3 (moderate) Date of Discharge:: 06/29/19 Description of Stay: Tonny Monteiro is an 88-year-old male with past medical history of type 2 diabetes, chronic kidney disease, hypertension, BPH, aortic stenosis, hypercholesterolemia, former smoker, who was admitted on 06/24/2019 for worsening weakness and persistent cough as well as a headache that started on the morning of admission.. He reports he went to bed feeling fine the night before admission and was not ill in the past few days but when he woke up and attempted to get out of bed he was unable to due to generalized weakness. The patient said he felt ill with chills and a persistent cough. He got the influenza vaccination several weeks ago and denied any adverse reactions after the injection. He reported any recent travel or sick contacts. He currently lives with his who tells me that the patient had been fine over the past several days but felt ill this morning per her knowledge. He denied losing consciousness at any moment or falling but says he just feels weak. He had adequate oral intake of fluids and food and denied any diarrhea that could explain fluid loss. In the ED , his WBC count was elevated and his CXR showed right lower lobe infiltrate. His WBC was elevated and he had ARF on CRF. He was admitted for hydration and IV antibiotics. It was possible that he had aspiration pneumonia vs CAP. He was started on on IV rocephin and azithromycin and since his clinical picture and WBC was responding to the antibiotics we did not add anything for anaerobes for possible aspiration. He did however complained of abdominal pain and his AXR showed possible colitis. Flagyl was added . Today he is no longer complaining of abdominal pain and diarrhea . His WBC is back to normal. His stool culture showed NG and negative for CDIff. His Cr (1.56) and GFR have improved significantly. His follow up AXR showed nono bstructive bowel gas pattern with no dilatation of the small and large intestine. Positive stool retention. He has had 1 BM since after the AXR. We will discharge him today. Procedures Performed: none Results and Findings: Pending Mircobiology Results 06/27/19 03:30 Stool Stool Culture - Preliminary No Pathogens Isolated 06/24/19 15:30 Blood Blood Culture - Preliminary NO GROWTH AFTER 48 HOURS 06/24/19 13:20 Blood Blood Culture - Preliminary NO GROWTH AFTER 48 HOURS Lab Pending Results 06/24/19 13:20: WBC 18.1 H, RBC 3.39 L, Hgb 10.9 L, Hct 32.3 L, MCV 95.3, MCH 32.2 H, MCHC 33.7, RDW 12.5, Plt Count 148 L, MPV 11.6 H, Immature Gran % (Auto) 0.90 H, Immature Gran # (Auto) 0.16 H, Neutrophils % 87.2 H, Lymphocytes % 6.1 L, Monocytes % 5.5, Eosinophils % 0.1, Basophils % 0.2, Nucleated RBC % 0.0, Neutrophils # 15.8 H, Lymphocytes # 1.11 L, Monocytes # 1.0, Eosinophils # 0.0, Absolute Basophils 0.0 06/24/19 13:20: Sodium 132, Plasma Sodium 134, Potassium 4.2, Chloride 99, Carbon Dioxide 25.3, Anion Gap 11.9, BUN 59 H, Creatinine 3.09 H D, Est GFR (Non-Af Amer) 20 L D, BUN/Creatinine Ratio 19.1, Random Glucose 251 H, Calcium 7.7 L, Calcium Adj for Albumin 8.1 L, Total Bilirubin 0.4, AST 31, ALT 36, Alkaline Phosphatase 88, Troponin I Less than 0.017, Total Protein 7.0, Albumin 3.1 L 06/24/19 13:20: Lactic Acid, Venous 1.6 06/24/19 15:24: Urine Color Yellow, Urine Appearance Clear, Urine pH 5.5, Ur Specific [place] 1.010, Urine Protein Negative, Urine Glucose (UA) Negative, Urine Ketones Negative, Urine Blood Negative, Urine Nitrate Negative, Urine Bilirubin Negative, Urine Urobilinogen Normal, Ur Leukocyte Esterase Negative, Urine RBC None seen, Urine WBC None seen, Ur Epithelial Cells None seen, Urine Bacteria None seen, Urine Culture Comments No culture indicated 06/25/19 05:25: WBC 12.5 H D, RBC 2.78 L, Hgb 8.7 L, Hct 26.3 L, MCV 94.6, MCH 31.3 H, MCHC 33.1, RDW 12.4, Plt Count 107 L, MPV 11.5 H, Immature Gran % (Auto) 0.40, Immature Gran # (Auto) 0.05 H, Neutrophils % 79.2 H, Lymphocytes % 11.8 L, Monocytes % 5.9, Eosinophils % 2.4, Basophils % 0.3, Nucleated RBC % 0.0, Neutrophils # 9.9 H, Lymphocytes # 1.48 L, Monocytes # 0.7, Eosinophils # 0.3, Absolute Basophils 0.0 06/25/19 05:25: Sodium 136, Plasma Sodium 135, Potassium 3.8, Chloride 105, Carbon Dioxide 23.2 L, Anion Gap 11.6, BUN 53 H, Creatinine 2.42 H D, Est GFR (Non-Af Amer) 27 L D, BUN/Creatinine Ratio 21.9 H, Random Glucose 61 L D, Calcium 7.3 L, Calcium Adj for Albumin 8.2 L, Total Bilirubin 0.4, AST 19, ALT 23, Alkaline Phosphatase 65, Total Protein 5.8 L, Albumin 2.5 L 06/25/19 07:32: Random Glucose 48 L 06/26/19 06:57: WBC 9.7 D, RBC 3.01 L, Hgb 9.4 L, Hct 29.2 L, MCV 97.0, MCH 31.2 H, MCHC 32.2, RDW 12.6, Plt Count 113 L, MPV 11.8 H, Immature Gran % (Auto) 0.30, Immature Gran # (Auto) 0.03, Neutrophils % 73.9, Lymphocytes % 12.1 L, Monocytes % 6.7, Eosinophils % 6.7 H, Basophils % 0.3, Nucleated RBC % 0.0, Neutrophils # 7.1 H, Lymphocytes # 1.17 L, Monocytes # 0.7, Eosinophils # 0.7, Absolute Basophils 0.0 06/26/19 06:57: Sodium 142, Plasma Sodium 142, Potassium 3.9, Chloride 111 H, Carbon Dioxide 23.5 L, Anion Gap 11.4, BUN 36 H, Creatinine 1.80 H D, Est GFR (Non-Af Amer) 38 L D, BUN/Creatinine Ratio 20.0, Random Glucose 125 H D, Calcium 7.6 L 06/26/19 06:57: Mean Blood Glucose 134, Hemoglobin A1c 6.6 H 06/26/19 10:49: Stl C.difficile Tox A&B Negative 06/27/19 05:50: WBC 10.5, RBC 2.90 L, Hgb 9.2 L, Hct 27.7 L, MCV 95.5, MCH 31.7 H, MCHC 33.2, RDW 12.5, Plt Count 116 L, MPV 11.6 H, Immature Gran % (Auto) 0.60 H, Immature Gran # (Auto) 0.06 H, Neutrophils % 71.4, Lymphocytes % 13.4 L, Monocytes % 8.4, Eosinophils % 5.8 H, Basophils % 0.4, Nucleated RBC % 0.0, Neutrophils # 7.5 H, Lymphocytes # 1.40 L, Monocytes # 0.9, Eosinophils # 0.6, Absolute Basophils 0.0 06/27/19 05:50: Sodium 141, Plasma Sodium 141, Potassium 4.1, Chloride 107 H, Carbon Dioxide 25.0, Anion Gap 13.1, BUN 30 H, Creatinine 1.67 H, Est GFR (Non- Af Amer) 41 L, BUN/Creatinine Ratio 18.0, Random Glucose 74 D, Calcium 7.6 L 06/28/19 06:00: WBC 9.6, RBC 3.04 L, Hgb 9.4 L, Hct 28.7 L, MCV 94.4, MCH 30.9, MCHC 32.8, RDW 12.3, Plt Count 128 L, MPV 11.5 H, Immature Gran % (Auto) 0.50 H, Immature Gran # (Auto) 0.05 H, Neutrophils % 68.5, Lymphocytes % 12.3 L, [place] cytes % 9.7 H, Eosinophils % 8.6 H, Basophils % 0.4, Nucleated RBC % 0.0, Neutrophils # 6.6 H, Lymphocytes # 1.18 L, Monocytes # 0.9, Eosinophils # 0.8 H, Absolute Basophils 0.0 06/28/19 06:00: Sodium 138, Plasma Sodium 137, Potassium 3.9, Chloride 106, Carbon Dioxide 26.3, Anion Gap 9.6, BUN 33 H, Creatinine 1.69 H, Est GFR (Non-Af Amer) 41 L, BUN/Creatinine Ratio 19.5, Random Glucose 53 L, Calcium 8.2, Calcium Adj for Albumin 9.2, Total Bilirubin 0.3, AST 20, ALT 23, Alkaline Phosphatase 105, Total Protein 6.4, Albumin 2.4 L 06/29/19 05:35: WBC 8.1, RBC 2.85 L, Hgb 9.1 L, Hct 27.5 L, MCV 96.5, MCH 31.9 H, MCHC 33.1, RDW 12.5, Plt Count 137 L, MPV 11.3, Immature Gran % (Auto) 0.60 H, Immature Gran # (Auto) 0.05 H, Neutrophils % 64.6, Lymphocytes % 14.5 L, Monocytes % 9.7 H, Eosinophils % 10.1 H, Basophils % 0.5, Nucleated RBC % 0.0, Neutrophils # 5.3, Lymphocytes # 1.18 L, Monocytes # 0.8, Eosinophils # 0.8 H, Absolute Basophils 0.0 06/29/19 05:35: Sodium 136, Plasma Sodium 135, Potassium 4.1, Chloride 106, Carbon Dioxide 24.5, Anion Gap 9.6, BUN 32 H, Creatinine 1.56 H, Est GFR (Non-Af Amer) 45 L, BUN/Creatinine Ratio 20.5, Random Glucose 61 L, Calcium 7.8 L, Calcium Adj for Albumin 8.9, Total Bilirubin 0.3, AST 23, ALT 21, Alkaline Phosphatase 104, Total Protein 6.3, Albumin 2.2 L 06/29/19 07:53: Random Glucose 74 Discharge Location: Home Disposition: Home self-care Condition: Stable Discharge Activity: Activity as tolerated Discharge Diet: Consistent carbs Referrals: Ayaz Perera MD [Primary Care Provider] - Additional Patient Instructions (free text): -Please make TCM appointment unless skilled nursing discharge, or if following up with outside provider. Thank you! Linda @ [facility] [id number]. Prescriptions (Any new or edited meds): metroNIDAZOLE [Flagyl] 500 mg PO Q8H 5 Days #15 tab Transmission Status: Received by [facility] Levofloxacin [Levaquin] 250 mg PO DAILY 5 Days #5 tab Transmission Status: Received by [facility] Famotidine [Pepcid] 20 mg PO DAILY #60 tab Transmission Status: Received by [facility] Insulin Degludec [Tresiba Flextouch U-100] 5 unit SUBCUT HS #15 ml Transmission Status: Received by [facility] Complete Home Medications List: Complete Home Medication List: Aspirin [Addis Chewable Aspirin] 81 mg PO DAILY 08/13/15 Finasteride [Proscar] 5 mg PO DAILY 08/13/15 Levothyroxine Sodium [Synthroid] 75 mcg PO DAILY 08/13/15 Vit B Comp/C/FA/Iron/Vit E [Vitamin B Complex Tablet] 1 ea PO DAILY 08/13/15 bisacodyl 5 mg tablet,delayed release 5 mg PO HS 03/10/18 calcium carbonate 500 mg calcium (1,250 mg) chewable tablet 500 mg PO DAILY tab 03/10/18 carvedilol 25 mg tablet 3.125 mg PO BID tab 03/10/18 hydrocortisone-pramoxine 1 %-1 % rectal cream 1 applic KS TID PRN g 03/10/18 magnesium hydroxide 400 mg/5 mL oral suspension 5 ml PO HS PRN 03/10/18 ogsthxgu-cui-bxfem acid 0.4 mg-lycopene 300 mcg-lutein 250 mcg tablet 1 tab PO DAILY 03/10/18 insulin syringe-needle U-100 0.3 mL 29 gauge x 1/2" See Dose Instructions .ROUTE .MEDSUPPLY #100 ea 03/12/18 pen needle, diabetic 31 gauge x 01/08" See Dose Instructions .ROUTE .MEDSUPPLY #100 ea 03/19/18 lisinopril 10 mg tablet 10 mg PO DAILY tab 09/19/18 furosemide 40 mg tablet 40 mg PO DAILY #90 tab 03/25/19 blood sugar diagnostic See Dose Instructions .ROUTE .MEDSUPPLY #200 ea 04/20/19 lancets See Dose Instructions .ROUTE .MEDSUPPLY #306 ea 04/20/19 amlodipine 10 mg tablet 10 mg PO DAILY #90 tab 05/13/19 gabapentin 300 mg capsule 300 mg PO BID #180 cap 06/02/19 simvastatin 10 mg tablet 10 mg PO DAILY #90 tab 06/02/19 Bisacodyl [Dulcolax] 5 mg PO DAILY PRN 06/25/19 Cyanocobalamin (Vitamin B-12) [Vitamin B12] 1,000 mg PO DAILY 06/25/19 Glimepiride 4 mg PO DAILY 06/25/19 [place]-3/Dha/Epa/Fish Oil [Fish Oil 1,000 mg Softgel] 1,000 mg PO DAILY 06/25/19 Tamsulosin HCl 0.8 mg PO QAM 06/25/19 Famotidine [Pepcid] 20 mg PO DAILY #60 tab 06/29/19 Insulin Degludec [Tresiba Flextouch U-100] 5 unit SUBCUT HS #15 ml 06/29/19 Levofloxacin [Levaquin] 250 mg PO DAILY 5 Days #5 tab 06/29/19 metroNIDAZOLE [Flagyl] 500 mg PO Q8H 5 Days #15 tab 06/29/19
[2019-06-29 15:16] VITALS: BP 142/60
[2019-06-29] MEDS ORDERED: CARVEDILOL 3.125 MG TABLET PO SCH (21:00)
[2019-06-29] MEDS ORDERED: INSULIN DETEMIR 100 UNITS/ML VIAL SC SCH (21:00)
== END 2019-06-29 14:45 | disposition home or self-care (01) | DRG 682 ==
LOC: ER 12:40 → MS 16:35
PROVIDERS: ADMIT Family Medicine; ATTEND Internal Medicine
DX: I35.0 Nonrheumatic aortic (valve) stenosis; Z79.4 Long term (current) use of insulin; N18.3 Chronic kidney disease, stage 3 (moderate); E86.0 Dehydration; J18.1 Lobar pneumonia, unspecified organism; E78.00 Pure hypercholesterolemia, unspecified; I12.9 Hypertensive chronic kidney disease with stage 1 through stage 4 chronic kidney disease, or unspecified chronic kidney disease; E11.22 Type 2 diabetes mellitus with diabetic chronic kidney disease; Z87.891 Personal history of nicotine dependence; K52.9 Noninfective gastroenteritis and colitis, unspecified; R53.1 Weakness; N17.9 Acute kidney failure, unspecified
CPT/HCPCS: 36415; 70450; 71020; 71046; 74019; 74020; 80048; 80053; 81001; 82947; 83036; 83605; 84484; 85025; 87040; 87045; 87046; 87493; 93005; 94640; 94664; 96361; 96365; 99285